=== PATIENT | male | born 1965 | race Caucasian/White ===

== ENCOUNTER 2021-03-28 10:12 | Outpatient (REF) | payer OTHER, SELFPAY ==
--- NOTE | ~2021-03-28 | XR_ITS ---
EXAMINATION: 1. RADIOGRAPHS LEFT RIBS 2. RADIOGRAPHS LEFT ELBOW CLINICAL INFORMATION: Pleurodynia. Left elbow pain. COMPARISON: Chest x-ray 08/20/2013 TECHNIQUE: 3 views of the left ribs and 4 views of the left elbow were obtained. FINDINGS: Left RIBS: Cardiac silhouette is normal in size. The lungs are well aerated. There is no lobar consolidation. No pleural effusion or pneumothorax. No left-sided rib fracture. Moderate degenerative changes of the left shoulder. Left elbow: No fracture or dislocation. No joint effusion. Minimal degenerative changes of the left elbow. No focal soft tissue swelling. No radiopaque foreign body. XR/XR elbow LT 2V IMPRESSION: -No left-sided rib fracture. -Minimal degenerative changes of the left elbow. -Moderate degenerative changes of the left shoulder, suboptimally visualized.
--- NOTE | ~2021-03-28 | XR_ITS ---
EXAMINATION: 1. RADIOGRAPHS LEFT RIBS 2. RADIOGRAPHS LEFT ELBOW CLINICAL INFORMATION: Pleurodynia. Left elbow pain. COMPARISON: Chest x-ray 08/20/2013 TECHNIQUE: 3 views of the left ribs and 4 views of the left elbow were obtained. FINDINGS: Left RIBS: Cardiac silhouette is normal in size. The lungs are well aerated. There is no lobar consolidation. No pleural effusion or pneumothorax. No left-sided rib fracture. Moderate degenerative changes of the left shoulder. Left elbow: No fracture or dislocation. No joint effusion. Minimal degenerative changes of the left elbow. No focal soft tissue swelling. No radiopaque foreign body. XR/XR ribs LT min 3V w CXR1V IMPRESSION: -No left-sided rib fracture. -Minimal degenerative changes of the left elbow. -Moderate degenerative changes of the left shoulder, suboptimally visualized.
== END 2021-03-28 10:13 | disposition home or self-care (01) ==
LOC: HO.XRAY 10:12
PROVIDERS: PCP Physician Assistant; Visit Provider Physician Assistant
DX: R07.81 Pleurodynia (principal); M25.522 Pain in left elbow
CPT/HCPCS: 71101; 73070

== ENCOUNTER 2021-10-16 08:36 | Outpatient (REF) | payer OTHER, SELFPAY ==
[2021-10-16 08:59] LABS: Hematocrit 45.8 % (42.0-52.0); Hemoglobin 16.1 g/dl (14.0-18.0); Mean Corpuscular HGB Conc 35.2 g/dl (31.0-36.0); Mean Corpuscular Hemoglobin 30.6 pg (27.0-33.0); Mean Corpuscular Volume 87.1 fL (80.0-98.0); Mean Platelet Volume 8.4 fL (9.4-12.4); Platelet Count 316 X10*3/uL (160-400); Red Blood Count 5.26 X10*6/uL (4.60-5.80); Red Cell Distribution Width 11.8 % (11.0-16.0)
[2021-10-16 09:29] LABS: Alanine Aminotransferase 17 U/L (0-40); Albumin Level 4.5 g/dL (3.5-5.0); Alkaline Phosphatase 63 U/L (39-117); Anion Gap 16 (12-20); Aspartate Amino Transferase 21 U/L (5-37); Bilirubin Total 0.8 mg/dL (0.0-1.0); Blood Urea Nitrogen 15 mg/dL (9-16); Calcium 9.8 mg/dL (8.4-10.2); Carbon Dioxide 28 mmol/L (22-29); Chloride 99 mmol/L (96-108); Cholesterol 193 mg/dL; Estimated Glomerular Filt Rate > 60; Glucose Fasting 117 mg/dL (60-99); HDL Cholesterol 49 mg/dL; LDL Cholesterol Calculated 128 mg/dl; Potassium 3.7 mmol/L (3.3-5.1); Sodium 139 mmol/L (135-145); Total Protein 7.6 g/dL (6.5-8.0); Triglycerides 82 mg/dL
[2021-10-16 09:52] LABS: Prostate Specific Antigen Scr 0.67 ng/mL (<0.05-4.0); TSH reflex Free T4 1.67 uIU/mL (0.32-4.0)
[2021-10-16 11:19] LABS: Creatinine Urine 192.33 mg/dL; Microalbum/Creatinine Ratio Ur 11.4 ug/mg cr
== END 2021-10-16 08:37 | disposition home or self-care (01) ==
LOC: HO.LAB 08:36
PROVIDERS: PCP Physician Assistant; Visit Provider Physician Assistant
DX: Z12.5 Encounter for screening for malignant neoplasm of prostate (principal); I10 Essential (primary) hypertension; E78.2 Mixed hyperlipidemia
CPT/HCPCS: 36415; 80053; 80061; 82043; 84153; 84443; 85027

== ENCOUNTER 2022-03-20 06:52 | Outpatient (REF) | payer OTHER, SELFPAY ==
[2022-03-20 07:38] LABS: Hematocrit 45.5 % (42.0-52.0); Hemoglobin 15.9 g/dl (14.0-18.0); Mean Corpuscular HGB Conc 34.9 g/dl (31.0-36.0); Mean Corpuscular Hemoglobin 30.2 pg (27.0-33.0); Mean Corpuscular Volume 86.5 fL (80.0-98.0); Mean Platelet Volume 8.5 fL (9.4-12.4); Platelet Count 329 X10*3/uL (160-400); Red Blood Count 5.26 X10*6/uL (4.60-5.80); Red Cell Distribution Width 11.7 % (11.0-16.0); White Blood Count 7.6 X10*3/uL (4.8-10.8)
[2022-03-20 07:46] LABS: Estimated Average Glucose 131 mg/dL; Hemoglobin A1c % 6.2 %
[2022-03-20 07:53] LABS: Creatinine Urine 221.39 mg/dL; Microalbum/Creatinine Ratio Ur 7.6 ug/mg cr
[2022-03-20 08:09] LABS: Alanine Aminotransferase 30 U/L (0-40); Albumin Level 4.3 g/dL (3.5-5.0); Alkaline Phosphatase 65 U/L (39-117); Anion Gap 13 (12-20); Aspartate Amino Transferase 19 U/L (5-37); Bilirubin Total 0.6 mg/dL (0.0-1.0); Blood Urea Nitrogen 12 mg/dL (9-16); Calcium 9.9 mg/dL (8.4-10.2); Carbon Dioxide 29 mmol/L (22-29); Chloride 102 mmol/L (96-108); Cholesterol 186 mg/dL; Estimated Glomerular Filt Rate > 60; Glucose Fasting 106 mg/dL (60-99); HDL Cholesterol 51 mg/dL; LDL Cholesterol Calculated 109 mg/dl; Potassium 3.9 mmol/L (3.3-5.1); Sodium 140 mmol/L (135-145); Total Protein 7.4 g/dL (6.5-8.0); Triglycerides 134 mg/dL
[2022-03-20 08:24] LABS: Prostate Specific Antigen Scr 0.78 ng/mL (<0.05-4.0); TSH reflex Free T4 2.55 uIU/mL (0.32-4.0)
== END 2022-03-20 06:53 | disposition home or self-care (01) ==
LOC: HO.LAB 06:52
PROVIDERS: PCP Physician Assistant; Visit Provider Physician Assistant
DX: Z12.5 Encounter for screening for malignant neoplasm of prostate (principal); R73.01 Impaired fasting glucose; I10 Essential (primary) hypertension; E78.2 Mixed hyperlipidemia
CPT/HCPCS: 36415; 80053; 80061; 82043; 83036; 84153; 84443; 85027

== ENCOUNTER 2022-10-29 07:47 | Outpatient (AMB) | payer OTHER, SELFPAY ==
[2022-10-29 07:48] VITALS: BP 122/78; PULSE 77; O2SAT 98; BMI 27.7
--- NOTE | 2022-10-29 07:48 | A.OFFPC_ITS ---
Vital Signs 10/29/22 07:48 Height 5 ft 7 in Weight 177 lb BMI 27.7 BP 122/78 Blood Pressure Location Lt brachial Position Sitting Pulse 77 Pulse Source Pulse Oximeter Pulse Oximetry (%) 98 Oxygen Delivery Method Room Air Intake Visit Reasons: Annual Exam Allergies lisinopril Adverse Reaction (Intermediate, Verified 10/29/22 07:59) Cough Medication List - Last Reconciled 10/29/22 by Evaristo Solano PA-C amlodipine 10 mg PO DAILY atorvastatin 40 mg PO DAILY 90 days fluorouracil 5% 1 appl topical BID 4 weeks gemfibrozil 600 mg PO BID hydrochlorothiazide 12.5 mg PO DAILY 90 days sildenafil 100 mg PO DAILY 14 days Tobacco use date assessed: 03/21/22 Dental Screening Dental Screen Date: 10/29/22 Did you have a dental visit in the last 12 months?: Yes Did you have a dental problem in the last 6 months where you did not have access to dental care?: No Was dental information given to patient?: Patient has dentist HPI Annual Exam HPI Details Sergey is a 57-year-old male here today for a annual physical. . Patient has a? past medical history of hypertension, hyperlipidemia,? overweight. . Concern--: fungal infection on toes has return , was on p.o. antifungal in the past with good effect on treating the fungal nails.?. ?HTN: Does not regularly check his blood? pressure at home though he reports blood pressure has been well controlled for? years now on his current med regime. Denies any headaches, chest pain, shortness? of breath. Today blood pressure acceptable. .. HLD: Cholesterol panel acceptable, continue current dose of statin therapy .. Impaired fasting blood sugar: ? Most recent fasting blood sugar 106, A1c is 6.2 , patient reports he is?? active?? and eats pret well.? Unclear if this is side effect statin therapy versus hydrochlorothiazide.? . ?. ? Colonoscopy? 2014 Dr. Mednoza -repeat 10 years. .. VAccine: UTD with Tdap, UTD with COVID vac, considering shingles vaccine Laboratory Tests 10/25/21 03/20/22 03/20/22 08:24 06:55 06:55 RBC 5.26 Fasting Glucose 106 H Hgb A1c (Clinic) 6.0 Hemoglobin A1c % Cholesterol 186 PSA Screen 0.78 Urine Microalbumin 03/20/22 03/20/22 06:55 06:55 RBC Fasting Glucose Hgb A1c (Clinic) Hemoglobin A1c % 6.2 Cholesterol PSA Screen Urine Microalbumin 17.0 [facility], [facility] Surgical History History of colonoscopy History of hernia surgery Family History Father AAA (abdominal aortic aneurysm) Social History Housing: House Alcohol intake: current Alcohol intake frequency: a few times a week Alcohol type: beer Patient Tobacco Use Status: Never used Tobacco e-Cigarette/Vaping Use: Never Used Second Hand Smoke Exposure: No service: No Current occupational status: employed Current occupation: [employer] Cognitive needs: No Hearing needs: No Vision needs: No Questionnaire PHQ-9 Over the last 2 weeks, how often have you been bothered by any of the following problems? 1. Little interest or pleasure in doing things: not at all 2. Feeling down, depressed, or hopeless: not at all 3. Trouble falling or staying asleep, or sleeping too much: not at all 4. Feeling tired or having little energy: not at all 5. Poor appetite or overeating: not at all 6. Feeling bad about yourself - or that you are a failure or have let yourself or your family down: not at all 7. Trouble concentrating on things, such as reading the newspaper or watching television: not at all 8. Moving or speaking so slowly that other people could have noticed. Or the opposite - being so fidgety or restless that you have been moving around a lot more than usual: not at all 9. Thoughts that you would be better off or of hurting yourself in some way: not at all Total score: 0 Depression Screening Interpretation: Negative 50675 - PHQ-9 Billing: Yes Source: Developed by Drs. Tristin Garcia, Erika Brownlee, Kaushal Lozano and colleagues, with an educational ninfa from [id number]. Thrive Questionnaire Date Thrive assessed: 03/21/22 AUDIT C Alcohol Use Questionnaire (AUDIT-C) 1. How often do you have a drink containing alcohol?: 2-3 times a week 2. How many drinks containing alcohol do you have on a typical day when you are drinking?: 1 or 2 3. How often do you have six or more drinks on one occasion?: Never Total Score: 3 LISA-7 AMB Questionnaire LISA-7 Date LISA - 7 assessed: 10/29/22 Feeling nervous, anxious, or on edge: 0 = Not at all Not being able to stop or control worryin = Not at all Worrying too much about different things: 0 = Not at all Trouble relaxin = Not at all Being so restless that it is hard to sit still: 0 = Not at all Becoming easily annoyed or irritable: 0 = Not at all Feeling afraid as if something awful might happen: 0 = Not at all Total LISA-7 score (0-4 normal; 5-9 mild; 10-14 moderate; 15-21 severe): 0 Source: Developed by Drs. Tristin Garcia, Erika Brownlee, Kaushal Lozano and colleagues, with an educational ninfa from [id number]. LISA-7 Assessment Billing LISA-7 Assessment Tool: LISA-7 Assessment 46114 Review of Systems Const Denies body aches, Denies chills, Denies excessive sweating, Denies fatigue, Denies fever(s) and Denies headache(s) Eyes Denies blurry vision ENT Denies dysphagia, Denies vertigo, Denies dizziness, Denies headache(s), Denies hearing loss and Denies tinnitus Card Denies chest pain, Denies chest pain with activity, Denies syncope, Denies irregular heart rhythm and Denies dyspnea Resp Denies chest congestion, Denies cough, Denies hemoptysis, Denies dyspnea and Denies wheezing GI Denies abdominal pain, Denies melena, Denies hematochezia, Denies coffee ground emesis, Denies dysphagia, Denies diarrhea, Denies nausea and Denies vomiting Denies difficulty urinating, Denies dysuria, Denies urinary frequency, Denies urinary hesitancy and Denies urinary urgency Musc Denies arthralgias, Denies limited range of motion, Denies muscle cramps and Denies muscle weakness Skin/Breast Denies rash and Denies skin ulcer Neuro Denies Abnormal speech present, Denies confusion, Denies vertigo, Denies dizziness, Denies syncope, Denies headache(s), Denies memory loss and Denies seizure-like activity Psych Denies anxiety, Denies confusion, Denies depression, Denies memory loss, Denies panic attacks and Denies paranoia Endo Denies excessive sweating, Denies fatigue, Denies flushing, Denies polydipsia and Denies polyuria Aller/Immun Denies wheezing Physical exam (Primary Care) Vital Signs: Last Vital Signs Pulse 77 10/29/22 07:48 BP 122/78 10/29/22 07:48 Pulse Ox 98 10/29/22 07:48 Oxygen Delivery Method Room Air 10/29/22 07:48 BMI result Body Mass Index 27.7 Tobacco/Smoking Status: Tobacco use Status Tobacco use date assessed 03/21/22 10/29/22 07:48 Patient Tobacco Use Status Never used Tobacco 10/29/22 07:48 e-Cigarette/Vaping Use Never Used 10/29/22 07:48 PHQ-9: PHQ-9 Score PHQ-9: Total score 0 10/29/22 08:03 Depression Screening Interpretation: Negative Thrive Assessment: Date of Thrive Assessment Date Thrive assessed 03/21/22 10/29/22 07:48 Const General: cooperative, comfortable, no acute distress, alert and awake; No confusion Orientation/consciousness: oriented to person, oriented to place, patient oriented x3 and No confusion HENMT Head: Yes normocephalic Ears: external ears normal and TM's normal bilaterally Face and sinus: No sinus tenderness Mouth: Normal oral and palatal mucosa present and tongue normal Teeth and gingiva: dentition normal and gingiva normal Throat: Yes posterior oropharynx normal, Yes tonsils normal and Yes uvula midline Eyes Conjunctivae: conjunctivae normal Sclerae: sclerae normal Pupils: Equal, round and reactive pupils present EOM: EOMs intact bilaterally Direct Ophthalmoscopy: No no photophobia Neck Neck: Yes no lymphadenopathy, No tender and Yes no JVD Thyroid: Thyroid normal Carotids: no bruits Chest Chest palpation & inspection: no tenderness Resp Effort & Inspection: normal respiratory effort, no audible wheezes, not labored and no stridor Auscultation: no crackles, no rales, no rhonchi and no wheezes Cardio Jugular venous distension: no JVD Rate: regular rate, not bradycardic and not tachycardic Rhythm: regular rhythm Bruits: no carotid bruits Peripheral pulses: Peripheral pulses 2+ throughout GI Inspection: Yes normal to inspection, No abdominal wall ecchymosis and No visible herniation Palpation (GI): Soft to palpation, nontender, no guarding, not rigid and No hepatosplenomegaly present Auscultation: normoactive bowel sounds General: Yes no CVA tenderness Back/Spine/Pelvis Back: no CVA tenderness and No back tenderness Cervical Spine: cervical ROM normal Thoracic/Lumbar Spine: thoracic and lumbar spine normal to inspection, straight leg raise negative bilaterally, No thoraco-lumbar ROM limited and No lumbar spinal tenderness Skin Lesions: no lesions Rashes: no rashes Wounds: no wounds Neuro General: oriented to person, oriented to place, patient oriented x3, CN's II-XI intact bilaterally and No confusion Cranial nerves: Yes Equal, round and reactive pupils present and Yes Normal accommodation reflex present Cognition (Neuro): normal cognition Speech: No Abnormal speech present Gait exam (Neuro): Normal gait present Motor exam (neuro): 5/5 motor strength present throughout Extrem Right upper extremity: full ROM; no cyanosis Left upper extremity: full ROM; no cyanosis Right lower extremity: no edema Left lower extremity: no edema Psych Appearance: grossly normal Mental Status: mental status grossly normal Affect: normal affect Attitude: cooperative Thought process: Normal thought process present Assessment and Plan Assessment & Plan (1) Annual physical exam: Code(s): Z00.00 - Encounter for general adult medical examination without abnormal findings (2) OM (onychomycosis): Code(s): B35.1 - Tinea unguium Plan: Has developed toenail onychomycosis and would like p.o. anti fungal therapy again. Has used p.o. antifungal therapy in the past with good results. (3) HLD (hyperlipidemia): Code(s): E78.5 - Hyperlipidemia, unspecified Qualifiers: Hyperlipidemia type: mixed hyperlipidemia Qualified Code(s): E78.2 - Mixed hyperlipidemia Plan: Patient's most recent fasting lipid panel showing appropriate LDL and total cholesterol. Will continue current dose of statin therapy. (4) HTN (hypertension): Code(s): I10 - Essential (primary) hypertension Qualifiers: Hypertension type: primary hypertension Qualified Code(s): I10 - Essential (primary) hypertension Plan: Patient's blood pressure acceptable today in office. Will continue current dose of hydrochlorothiazide amlodipine with goal blood pressure be below 140/90 (5) Elevated fasting blood sugar: Code(s): R73.01 - Impaired fasting glucose Plan: Patient's most recent fasting blood sugar improved to 106 though still slightly elevated. Most recent A1c is 6.2 He will continue working on lifestyle modifications to reduce his carbohydrates and sugar in his diet. Orders: Orders Comprehensive [place]. Panel Fast Today I10 - Essential (primary) hypertension Hemoglobin A1c Today R73.01 - Impaired fasting glucose Lipid Panel Today E78.2 - Mixed hyperlipidemia Prostate Specific Antigen Scr Today R73.01 - Impaired fasting glucose, Z12.5 - Encounter for screening for malignant neoplasm of prostate Microalbumin, Random (w Creat) Today I10 - Essential (primary) hypertension Complete Blood Count no Diff Today I10 - Essential (primary) hypertension Medications: New terbinafine HCl 250 mg PO DAILY 12 weeks 84 tabs 0RF B35.1 - Tinea unguium Coding Level of Care Code Est Pt Prev Care 40-64y(70398) Diagnoses Annual physical exam Z00.00 OM (onychomycosis) B35.1 HLD (hyperlipidemia) E78.2 Hyperlipidemia type: mixed hyperlipidemia HTN (hypertension) I10 Hypertension type: primary hypertension Elevated fasting blood sugar R73.01 Additional Codes LISA-7 Assessment Billing - LISA-7 Assessment Tool: LISA-7 Assessment 32760 ([id number])
== END 2022-10-29 08:16 | disposition home or self-care (01) ==
PROVIDERS: PCP Physician Assistant; Visit Provider Physician Assistant
DX: Z00.00 Encounter for general adult medical examination without abnormal findings (principal); B35.1 Tinea unguium; E78.2 Mixed hyperlipidemia; I10 Essential (primary) hypertension; R73.01 Impaired fasting glucose
CPT/HCPCS: 99396

== ENCOUNTER 2023-04-01 07:10 | Outpatient (REF) | payer OTHER, SELFPAY ==
[2023-04-01 08:07] LABS: Estimated Average Glucose 131 mg/dL; Hemoglobin A1c % 6.2 % (<6.0)
[2023-04-01 08:14] LABS: Hematocrit 47.1 % (42.0-52.0); Hemoglobin 16.1 g/dl (14.0-18.0); Mean Corpuscular HGB Conc 34.2 g/dl (31.0-36.0); Mean Corpuscular Volume 87.9 fL (80.0-98.0); Mean Platelet Volume 8.4 fL (9.4-12.4); Platelet Count 363 X10*3/uL (160-400); Red Blood Count 5.36 X10*6/uL (4.60-5.80); Red Cell Distribution Width 12.2 % (11.0-16.0); White Blood Count 8.1 X10*3/uL (4.8-10.8)
[2023-04-01 08:23] LABS: Creatinine Urine 224.24 mg/dL
[2023-04-01 08:29] LABS: Alanine Aminotransferase 16 U/L (0-40); Albumin Level 4.3 g/dL (3.5-5.0); Alkaline Phosphatase 66 U/L (39-117); Anion Gap 13 (12-20); Aspartate Amino Transferase 15 U/L (5-37); Bilirubin Total 0.6 mg/dL (0.0-1.0); Blood Urea Nitrogen 14 mg/dL (9-16); Calcium 9.9 mg/dL (8.4-10.2); Carbon Dioxide 28 mmol/L (22-29); Chloride 102 mmol/L (96-108); Cholesterol 220 mg/dL (<200); Estimated Glomerular Filt Rate > 60; Glucose Fasting 119 mg/dL (60-99); HDL Cholesterol 46 mg/dL (>40); LDL Cholesterol Calculated 142 mg/dL (<100); Potassium 3.3 mmol/L (3.3-5.1); Sodium 140 mmol/L (135-145); Total Protein 7.7 g/dL (6.5-8.0); Triglycerides 162 mg/dL (<150)
[2023-04-01 08:43] LABS: TSH reflex Free T4 2.13 uIU/mL (0.32-4.0)
== END 2023-04-01 07:11 | disposition home or self-care (01) ==
LOC: HO.LAB 07:10
PROVIDERS: PCP Physician Assistant; Visit Provider Physician Assistant
DX: Z12.5 Encounter for screening for malignant neoplasm of prostate (principal); I10 Essential (primary) hypertension; R73.01 Impaired fasting glucose; E78.2 Mixed hyperlipidemia
CPT/HCPCS: 36415; 80053; 80061; 82043; 82570; 83036; 84153; 84443; 85027

== ENCOUNTER 2023-12-24 10:02 | Outpatient (AMB) | payer OTHER, SELFPAY ==
--- NOTE | 2023-12-24 10:05 | A.OFFPC_ITS ---
Vital Signs 12/24/23 10:06 Height 5 ft 7 in Weight 173 lb 2 oz BMI 27.1 BP 148/100 H Blood Pressure Location Lt brachial Position Sitting Pulse 70 Pulse Source Pulse Oximeter Pulse Oximetry (%) 98 Oxygen Delivery Method Room Air Intake Visit Reasons: PE Intake Note: Patient is here today for a physical. Pt decline flu shot. 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 Accompanied by: Self / Same As Patient Allergies lisinopril Adverse Reaction (Intermediate, Verified 12/24/23 10:16) Cough Medication List - Last Reconciled 12/24/23 by Evaristo Solano PA-C amlodipine 10 mg PO DAILY atorvastatin 40 mg PO DAILY 90 days fluorouracil 5% 1 appl topical BID 4 weeks hydrochlorothiazide 12.5 mg PO DAILY 90 days terbinafine HCl 250 mg PO DAILY 6 weeks Tobacco use date assessed: 12/24/23 Dental Screening Dental Screen Date: 12/24/23 Did you have a dental visit in the last 12 months?: Yes Did you have a dental problem in the last 6 months where you did not have access to dental care?: No Was dental information given to patient?: Patient has dentist HPI PE HPI Details Sergey is a 58-year-old male here today for a annual physical. . Patient has a? past medical history of hypertension, hyperlipidemia,? overweight. . Concern--> ?. ?HTN: Does not regularly check his blood? pressure at home though he reports blood pressure has been well controlled for? years. Today in office blood pressure elevated. He reports he has stopped drinking coffee. Otherwise Denies any headaches, chest pain, shortness? of breath.. .. HLD: Most recent lipid panel showing elevated total cholesterol and LDL, continue current dose of statin therapy .. Impaired fasting blood sugar: Today's A1c is 6.3 from 6.2. , does understand his fasting blood sugars and A1cs are in prediabetic range. He is not interested in starting medication will like to work on dietary modifications. ?. ? Colonoscopy? 2014 Dr. Mendoza -repeat 10 years. .. VAccine: UTD with Tdap, UTD with COVID vac, considering shingles vaccine, Declines flu vaccine Laboratory Tests 03/20/22 04/01/23 06:55 07:23 RBC 5.36 Fasting Glucose 106 H 119 H Hemoglobin A1c % 6.2 6.2 H Cholesterol 186 220 H LDL Cholesterol, C alc 109 142 H TSH 2.13 PFSH Medical History Erectile dysfunction Surgical History History of hernia surgery History of colonoscopy Family History Father AAA (abdominal aortic aneurysm) Social History (Updated 12/24/23 @ 10:19 by Evaristo Solano PA-C) Housing: House Alcohol intake: current Alcohol intake frequency: a few times a week Alcohol type: beer Patient Tobacco Use Status: Never used Tobacco e-Cigarette/Vaping Use: Never Used Second Hand Smoke Exposure: No service: No Current occupational status: employed Current occupation: [employer] Cognitive needs: No Hearing needs: No Vision needs: No Questionnaire PHQ-9 Over the last 2 weeks, how often have you been bothered by any of the following problems? 1. Little interest or pleasure in doing things: not at all 2. Feeling down, depressed, or hopeless: not at all 3. Trouble falling or staying asleep, or sleeping too much: not at all 4. Feeling tired or having little energy: not at all 5. Poor appetite or overeating: not at all 6. Feeling bad about yourself - or that you are a failure or have let yourself or your family down: not at all 7. Trouble concentrating on things, such as reading the newspaper or watching television: not at all 8. Moving or speaking so slowly that other people could have noticed. Or the opposite - being so fidgety or restless that you have been moving around a lot more than usual: not at all 9. Thoughts that you would be better off or of hurting yourself in some way: not at all Total score: 0 Depression Screening Interpretation: Negative Depression Screening Done: Yes 42001 - PHQ-9 Billing: Yes Source: Developed by Drs. Tristin Garcia, Erika Brownlee, Kaushal Lozano and colleagues, with an educational ninfa from [employer]. Thrive Questionnaire Date Thrive assessed: 12/24/23 I am a: Patient What is your living situation today?: I have a steady place to live Within the past 12 months, did the food you bought not last and you didn't have the money to get more?: Never true Within the past 12 months, did you worry whether your food would run out before you got money to buy more?: Never true Do you have trouble paying for medicines?: No Do you have trouble getting transportation to medical appointments?: No Do you have trouble paying your heating and electricity bill?: No Do you have trouble taking care of your child, family member or friend?: No Do you have trouble with day-to-day activities such as bathing, preparing meals, shopping, managing finances, etc.?: No Are you currently unemployed and looking for a job?: No Are you interested in more education?: No Please select the resources that you would like help with: None Currently or been in a relationship where the following occur: No concerns reported THRIVE Score: 0 AUDIT C Alcohol Use Questionnaire (AUDIT-C) 1. How often do you have a drink containing alcohol?: 2-3 times a week 2. How many drinks containing alcohol do you have on a typical day when you are drinking?: 3 or 4 3. How often do you have six or more drinks on one occasion?: Less than monthly Total Score: 5 LISA-7 AMB Questionnaire LISA-7 Date LISA - 7 assessed: 12/24/23 Feeling nervous, anxious, or on edge: 0 = Not at all Not being able to stop or control worryin = Not at all Worrying too much about different things: 0 = Not at all Trouble relaxin = Not at all Being so restless that it is hard to sit still: 0 = Not at all Becoming easily annoyed or irritable: 0 = Not at all Feeling afraid as if something awful might happen: 0 = Not at all Total LISA-7 score (0-4 normal; 5-9 mild; 10-14 moderate; 15-21 severe): 0 Source: Developed by Drs. Tristin Garcia, Erika Brownlee, Kaushal Lozano and colleagues, with an educational ninfa from [employer]. LISA-7 Assessment Billing LISA-7 Assessment Tool: LISA-7 Assessment 59459 Review of Systems Const Denies body aches, Denies chills, Denies excessive sweating, Denies fatigue, Denies fever(s) and Denies headache(s) Eyes Denies blurry vision ENT Denies dysphagia, Denies vertigo, Denies dizziness, Denies headache(s), Denies hearing loss and Denies tinnitus Card Denies chest pain, Denies chest pain with activity, Denies syncope, Denies irregular heart rhythm and Denies dyspnea Resp Denies chest congestion, Denies cough, Denies hemoptysis, Denies dyspnea and Denies wheezing GI Denies abdominal pain, Denies melena, Denies hematochezia, Denies coffee ground emesis, Denies dysphagia, Denies diarrhea, Denies nausea and Denies vomiting Denies difficulty urinating, Denies dysuria, Denies urinary frequency, Denies urinary hesitancy and Denies urinary urgency Musc Denies arthralgias, Denies limited range of motion, Denies muscle cramps and Denies muscle weakness Skin/Breast Denies rash and Denies skin ulcer Neuro Denies Abnormal speech present, Denies confusion, Denies vertigo, Denies dizziness, Denies syncope, Denies headache(s), Denies memory loss and Denies seizure-like activity Psych Denies anxiety, Denies confusion, Denies depression, Denies memory loss, Denies panic attacks and Denies paranoia Endo Denies excessive sweating, Denies fatigue, Denies flushing, Denies polydipsia and Denies polyuria Aller/Immun Denies wheezing Physical exam (Primary Care) Vital Signs: Last Vital Signs Pulse 70 12/24/23 10:06 BP 148/100 H 12/24/23 10:06 Pulse Ox 98 12/24/23 10:06 Oxygen Delivery Method Room Air 12/24/23 10:06 BMI result Body Mass Index 27.1 Tobacco/Smoking Status: Tobacco use Status Tobacco use date assessed 12/24/23 12/24/23 10:06 Patient Tobacco Use Status Never used Tobacco 12/24/23 10:06 e-Cigarette/Vaping Use Never Used 12/24/23 10:06 PHQ-9: PHQ-9 Score PHQ-9: Total score 0 12/24/23 10:06 Depression Screening Interpretation: Negative Thrive Assessment: Date of Thrive Assessment Date Thrive assessed 12/24/23 12/24/23 10:06 Currently or been in a relationship where the following occur: No concerns reported Const General: cooperative, comfortable, no acute distress, alert and awake; No confusion Orientation/consciousness: oriented to person, oriented to place, patient oriented x3 and No confusion HENMT Head: Yes normocephalic Ears: external ears normal and TM's normal bilaterally Face and sinus: No sinus tenderness Mouth: Normal oral and palatal mucosa present and tongue normal Teeth and gingiva: dentition normal and gingiva normal Throat: Yes posterior oropharynx normal, Yes tonsils normal and Yes uvula midline Eyes Conjunctivae: conjunctivae normal Sclerae: sclerae normal Pupils: Equal, round and reactive pupils present EOM: EOMs intact bilaterally Direct Ophthalmoscopy: No no photophobia Neck Neck: Yes no lymphadenopathy, No tender and Yes no JVD Thyroid: Thyroid normal Carotids: no bruits Chest Chest palpation & inspection: no tenderness Resp Effort & Inspection: normal respiratory effort, no audible wheezes, not labored and no stridor Auscultation: no crackles, no rales, no rhonchi and no wheezes Cardio Jugular venous distension: no JVD Rate: regular rate, not bradycardic and not tachycardic Rhythm: regular rhythm Bruits: no carotid bruits Peripheral pulses: Peripheral pulses 2+ throughout GI Inspection: Yes normal to inspection, No abdominal wall ecchymosis and No visible herniation Palpation (GI): Soft to palpation, nontender, no guarding, not rigid and No hepatosplenomegaly present Auscultation: normoactive bowel sounds General: Yes no CVA tenderness Back/Spine/Pelvis Back: no CVA tenderness and No back tenderness Cervical Spine: cervical ROM normal Thoracic/Lumbar Spine: thoracic and lumbar spine normal to inspection, straight leg raise negative bilaterally, No thoraco-lumbar ROM limited and No lumbar spinal tenderness Skin Lesions: no lesions Rashes: no rashes Wounds: no wounds Neuro General: oriented to person, oriented to place, patient oriented x3, CN's II-XI intact bilaterally and No confusion Cranial nerves: Yes Equal, round and reactive pupils present and Yes Normal accommodation reflex present Cognition (Neuro): normal cognition Speech: No Abnormal speech present Gait exam (Neuro): Normal gait present Motor exam (neuro): 5/5 motor strength present throughout Extrem Right upper extremity: full ROM; no cyanosis Left upper extremity: full ROM; no cyanosis Right lower extremity: no edema Left lower extremity: no edema Psych Appearance: grossly normal Mental Status: mental status grossly normal Affect: normal affect Attitude: cooperative Thought process: Normal thought process present Results AMB Hemoglobin A1c AMB Hemoglobin A1c 6.3 % Last Edit by EVELINE Powers on 12/24/23 10:17 Coding Level of Care Code Est Pt Prev Care 40-64y(21260) Diagnoses Annual physical exam Z00.00 Primary hypertension I10 Hypertension type: primary hypertension Mixed hyperlipidemia E78.2 Hyperlipidemia type: mixed hyperlipidemia Impaired glucose metabolism R73.09 Additional Codes LISA-7 Assessment Billing - LISA-7 Assessment Tool: LISA-7 Assessment 29900 ([id number]) Assessment & Plan Assessment & Plan (1) Annual physical exam: Code(s): Z00.00 - Encounter for general adult medical examination without abnormal findin gs Category: Medical Plan: as per HPI (2) HTN (hypertension): Code(s): I10 - Essential (primary) hypertension Category: Medical Qualifiers: Hypertension type: primary hypertension Qualified Code(s): I10 - Essential (primary) hypertension Plan: Patient's blood pressure today in office elevated. Has not been monitoring blood pressure at home. He will start doing more regular blood pressure monitoring at home and will message on the portal about his blood pressure readings. Will consider increasing his dose of hydrochlorothiazide back to 25 mg. Goal blood pressure to be consistently below 140/90 (3) HLD (hyperlipidemia): Code(s): E78.5 - Hyperlipidemia, unspecified Category: Medical Qualifiers: Hyperlipidemia type: mixed hyperlipidemia Qualified Code(s): E78.2 - Mixed hyperlipidemia Plan: Patient's most recent lipid panel showing borderline high total cholesterol and LDL. He continues on atorvastatin 40 mg. Will recheck lipid panel to ensure stable total cholesterol and LDL. Goal LDL to be below 130 (4) Impaired glucose metabolism: Code(s): R73.09 - Other abnormal glucose Category: Medical Plan: Patient does understand his fasting blood sugar and A1c are indicating prediabetes. We did discuss perhaps starting metformin though patient would like to hold off for now. He will work on lifestyle and dietary modifications. Goal A1c to be below 5.7 Orders: Orders AMB Hemoglobin A1c Today R73.01 - Impaired fasting glucose Comprehensive [place]. Panel Fast Today I10 - Essential (primary) hypertension Complete Blood Count no Diff Today I10 - Essential (primary) hypertension Lipid Panel Today E78.2 - Mixed hyperlipidemia Hemoglobin A1c Today R73.01 - Impaired fasting glucose Patient Instructions: Goal: Blood pressure to be below 140/90 Barriers: Adherence to physical activity and healthy eating habits
[2023-12-24 10:06] VITALS: BP 148/100; PULSE 70; O2SAT 98; BMI 27.1
== END 2023-12-24 10:35 | disposition home or self-care (01) ==
PROVIDERS: PCP Physician Assistant; Visit Provider Physician Assistant
DX: Z00.00 Encounter for general adult medical examination without abnormal findings (principal); I10 Essential (primary) hypertension; E78.2 Mixed hyperlipidemia; R73.09 Other abnormal glucose; R73.01 Impaired fasting glucose

== ENCOUNTER → 2023-12-24 10:02 | Outpatient (BNVA) | payer OTHER, SELFPAY | PROVIDERS: PCP Physician Assistant; Visit Provider Physician Assistant | DX: Z00.00 Encounter for general adult medical examination without abnormal findings (principal); I10 Essential (primary) hypertension; E78.2 Mixed hyperlipidemia; R73.09 Other abnormal glucose; Z79.899 Other long term (current) drug therapy | CPT/HCPCS: 83036; 96127 ==

== ENCOUNTER 2023-12-30 07:16 | Outpatient (REF) | payer OTHER, SELFPAY ==
[2023-12-30 07:51] LABS: Hematocrit 47.6 % (42.0-52.0); Hemoglobin 16.6 g/dl (14.0-18.0); Mean Corpuscular HGB Conc 34.9 g/dl (31.0-36.0); Mean Corpuscular Hemoglobin 30.2 pg (27.0-33.0); Mean Corpuscular Volume 86.5 fL (80.0-98.0); Mean Platelet Volume 8.4 fL (9.4-12.4); Platelet Count 270 X10*3/uL (160-400); Red Cell Distribution Width 12.1 % (11.0-16.0); White Blood Count 6.9 X10*3/uL (4.8-10.8)
[2023-12-30 08:04] LABS: Estimated Average Glucose 128 mg/dL; Hemoglobin A1C 181.2131 umol/L; Hemoglobin A1c % 6.1 % (<6.0); Total Hemoglobin (HGBA1C) 4151.7343 umol/L
[2023-12-30 08:33] LABS: Alanine Aminotransferase 51 U/L (0-40); Albumin Level 4.2 g/dL (3.5-5.0); Alkaline Phosphatase 73 U/L (39-117); Anion Gap 11 (12-20); Aspartate Amino Transferase 24 U/L (5-37); Bilirubin Total 0.6 mg/dL (0.0-1.0); Blood Urea Nitrogen 14 mg/dL (9-16); Calcium 9.1 mg/dL (8.4-10.2); Carbon Dioxide 26 mmol/L (22-29); Chloride 107 mmol/L (96-108); Cholesterol 174 mg/dL (<200); Estimated Glomerular Filt Rate > 60; Glucose Fasting 114 mg/dL (60-99); HDL Cholesterol 48 mg/dL (>40); LDL Cholesterol Calculated 88 mg/dL (<100); Potassium 3.4 mmol/L (3.3-5.1); Sodium 141 mmol/L (135-145); Total Protein 7.4 g/dL (6.5-8.0); Triglycerides 192 mg/dL (<150)
== END 2023-12-30 07:17 | disposition home or self-care (01) ==
LOC: HO.LAB 07:16
PROVIDERS: PCP Physician Assistant; Visit Provider Physician Assistant
DX: I10 Essential (primary) hypertension (principal); E78.2 Mixed hyperlipidemia; R73.01 Impaired fasting glucose
CPT/HCPCS: 36415; 80053; 80061; 83036; 85027

== ENCOUNTER → 2024-01-16 11:01 | Outpatient (BNVA) | payer OTHER, SELFPAY | PROVIDERS: PCP Physician Assistant ==

== ENCOUNTER 2024-07-29 08:28 | Outpatient (AMB) | payer OTHER, SELFPAY ==
[2024-07-29 08:46] VITALS: BP 124/82; PULSE 68; O2SAT 97; BMI 28.7
--- NOTE | 2024-07-29 08:46 | A.OFFPC_ITS ---
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 Accompanied by: Self / Same As Patient Allergies lisinopril Adverse Reaction (Intermediate, Verified 07/29/24 09:00) Cough Medication List - Last Reconciled 07/29/24 by Evaristo Solano PA-C amlodipine 10 mg PO DAILY atorvastatin 40 mg PO DAILY 90 days fluorouracil 5% 1 appl topical BID 4 weeks hydrochlorothiazide 12.5 mg PO DAILY 90 days hydrochlorothiazide 25 mg PO DAILY losartan 25 mg PO DAILY 30 days terbinafine HCl 250 mg PO DAILY 6 weeks Tobacco use date assessed: 07/29/24 Dental Screening Dental Screen Date: 07/29/24 Did you have a dental visit in the last 12 months?: Yes Did you have a dental problem in the last 6 months where you did not have access to dental care?: No Was dental information given to patient?: Patient has dentist HPI f/u HTN HPI Details Sergey is a 59-year-old male here today for a follow-up visit . Patient has a? past medical history of hypertension, hyperlipidemia, impaired glucose metabolism,? overweight. . ?. ?HTN: Today's blood pressure in office acceptable. He does take a higher dose of hydrochlorothiazide 25 mg. Of note has gained 10 lb over the winter.. Otherwise Denies any headaches, chest pain, shortness? of breath.. .. HLD: Most recent lipid panel showing elevated total cholesterol and LDL, continue current dose of statin therapy .. Impaired fasting blood sugar: Most recent A1c is 6.3. , does understand his fasting blood sugars and A1cs are in prediabetic range. He is not interested in starting medication will like to work on dietary modifications. [facility] Medical History Erectile dysfunction Surgical History History of hernia surgery History of colonoscopy Family History Father AAA (abdominal aortic aneurysm) Social History Housing: House Alcohol intake: current Alcohol intake frequency: a few times a week Alcohol type: beer Patient Tobacco Use Status: Never used Tobacco e-Cigarette/Vaping Use: Never Used Second Hand Smoke Exposure: No service: No Current occupational status: employed Current occupation: [employer] Cognitive needs: No Hearing needs: No Vision needs: No Questionnaire PHQ-9 Over the last 2 weeks, how often have you been bothered by any of the following problems? 1. Little interest or pleasure in doing things: not at all 2. Feeling down, depressed, or hopeless: not at all 3. Trouble falling or staying asleep, or sleeping too much: not at all 4. Feeling tired or having little energy: not at all 5. Poor appetite or overeating: not at all 6. Feeling bad about yourself - or that you are a failure or have let yourself or your family down: not at all 7. Trouble concentrating on things, such as reading the newspaper or watching television: not at all 8. Moving or speaking so slowly that other people could have noticed. Or the opposite - being so fidgety or restless that you have been moving around a lot more than usual: not at all 9. Thoughts that you would be better off or of hurting yourself in some way: not at all Total score: 0 Depression Screening Interpretation: Negative Depression Screening Done: Yes 61621 - PHQ-9 Billing: Yes Source: Developed by Drs. Tristin Garcia, Erika Brownlee, Kaushal Lozano and colleagues, with an educational ninfa from [employer]. Thrive Questionnaire Date Thrive assessed: 07/29/24 I am a: Patient What is your living situation today?: I have a steady place to live Within the past 12 months, did the food you bought not last and you didn't have the money to get more?: Never true Within the past 12 months, did you worry whether your food would run out before you got money to buy more?: Never true Do you have trouble paying for medicines?: No Do you have trouble getting transportation to medical appointments?: No Do you have trouble paying your heating and electricity bill?: No Do you have trouble taking care of your child, family member or friend?: No Do you have trouble with day-to-day activities such as bathing, preparing meals, shopping, managing finances, etc.?: No Are you currently unemployed and looking for a job?: No Are you interested in more education?: No Please select the resources that you would like help with: None Currently or been in a relationship where the following occur: No concerns reported THRIVE Score: 0 AUDIT C Alcohol Use Questionnaire (AUDIT-C) 1. How often do you have a drink containing alcohol?: 2-3 times a week 2. How many drinks containing alcohol do you have on a typical day when you are drinking?: 3 or 4 3. How often do you have six or more drinks on one occasion?: Less than monthly Total Score: 5 LISA-7 AMB Questionnaire LISA-7 Date LISA - 7 assessed: 07/29/24 Feeling nervous, anxious, or on edge: 0 = Not at all Not being able to stop or control worryin = Not at all Worrying too much about different things: 0 = Not at all Trouble relaxin = Not at all Being so restless that it is hard to sit still: 0 = Not at all Becoming easily annoyed or irritable: 0 = Not at all Feeling afraid as if something awful might happen: 0 = Not at all Total LISA-7 score (0-4 normal; 5-9 mild; 10-14 moderate; 15-21 severe): 0 Source: Developed by Drs. Tristin Garcia, Erika Brownlee, Kaushal Lozano and colleagues, with an educational ninfa from [employer]. LISA-7 Assessment Billing LISA-7 Assessment Tool: LISA-7 Assessment 53948 Review of Systems Const Denies headache(s) Eyes Denies loss of vision ENT Denies vertigo, Denies dizziness, Denies headache(s) and Denies sore throat Card Denies chest pain, Denies leg edema and Denies lightheadedness Resp Denies cough, Denies hemoptysis and Denies wheezing GI Denies abdominal pain, Denies melena, Denies constipation, Denies diarrhea and Denies vomiting Denies dysuria, Denies urinary frequency and Denies urinary urgency Musc Denies arthralgias, Denies joint swelling, Denies numbness and Denies tingling Neuro Denies Abnormal speech present, Denies behavioral changes, Denies vertigo, Denies dizziness, Denies headache(s), Denies loss of vision, Denies memory loss, Denies numbness and Denies tingling Psych Denies anxiety, Denies behavioral changes, Denies depression, Denies memory loss and Denies panic attacks Royer/Lymph Denies easy bleeding and Denies easy bruising Aller/Immun Denies wheezing Physical exam (Primary Care) Vital Signs: Last Vital Signs Pulse 68 07/29/24 08:46 BP 124/82 07/29/24 08:46 Pulse Ox 97 07/29/24 08:46 Oxygen Delivery Method Room Air 07/29/24 08:46 BMI result Body Mass Index 28.7 Tobacco/Smoking Status: Tobacco use Status Tobacco use date assessed 07/29/24 07/29/24 08:53 Patient Tobacco Use Status Never used Tobacco 07/29/24 08:53 e-Cigarette/Vaping Use Never Used 07/29/24 08:53 PHQ-9: PHQ-9 Score PHQ-9: Total score 0 07/29/24 08:53 Depression Screening Interpretation: Negative Thrive Assessment: Date of Thrive Assessment Date Thrive assessed 07/29/24 07/29/24 08:53 Currently or been in a relationship where the following occur: No concerns reported Const General: healthy appearing, no acute distress, alert and awake Nutritional Appearance: well nourished Orientation/consciousness: oriented to person, oriented to place and oriented to time HENMT Ears: TM's normal bilaterally General nose exam: Normal nasal mucous membranes and turbinates present Eyes Conjunctivae: conjunctivae normal Sclerae: sclerae normal Pupils: Equal, round and reactive pupils present Neck Neck: Yes no lymphadenopathy and Yes no JVD Thyroid: Thyroid normal Carotids: no bruits Resp Effort & Inspection: normal respiratory effort and not tachypneic Auscultation: no crackles, no rales, no rhonchi and no wheezes Cardio Rate: regular rate Rhythm: regular rhythm Heart sounds: no murmurs and normal S1 and S2 GI Palpation (GI): Soft to palpation, nontender, no hepatomegaly and no splenomegaly Auscultation: normal bowel sounds Skin General skin exam: no rashes or lesions noted and dry skin Neuro General: oriented to person, oriented to place and oriented to time Cranial nerves: Yes Equal, round and reactive pupils present Speech: No Abnormal speech present Gait exam (Neuro): Normal gait present Motor exam (neuro): no tremor noted Extrem Right upper extremity: full ROM Left upper extremity: full ROM Right lower extremity: full ROM; no edema Left lower extremity: full ROM; no edema Psych Mental Status: mental status grossly normal Speech and movement: Normal speech and movement present Affect: normal affect Attitude: cooperative Thought process: Normal thought process present Coding Level of Care Code Est Pt Level 4 (45955) Diagnoses Primary hypertension I10 Hypertension type: primary hypertension Mixed hyperlipidemia E78.2 Hyperlipidemia type: mixed hyperlipidemia Impaired glucose metabolism R73.09 Additional Codes LISA-7 Assessment Billing - LISA-7 Assessment Tool: LISA-7 Assessment 52737 ([id number]) PHQ-9 - 46607 - PHQ-9 Billing: Yes ([id number]) Assessment & Plan Assessment & Plan (1) HTN (hypertension): Code(s): I10 - Essential (primary) hypertension Category: Medical Qualifiers: Hypertension type: primary hypertension Qualified Code(s): I10 - Essential (primary) hypertension Plan: Patient's blood pressure acceptable today in office. We increased his hydrochlorothiazide 25 mg which seems to have regulate his blood pressure better. Has not been monitoring blood pressure at home. Goal blood pressure to be consistently below 140/90 (2) HLD (hyperlipidemia): Code(s): E78.5 - Hyperlipidemia, unspecified Category: Medical Qualifiers: Hyperlipidemia type: mixed hyperlipidemia Qualified Code(s): E78.2 - Mixed hyperlipidemia Plan: Patient's most recent lipid panel showing borderline high total cholesterol and LDL. He continues on atorvastatin 40 mg. Will recheck lipid panel to ensure stable total cholesterol and LDL. Goal LDL to be below 130 (3) Impaired glucose metabolism: Code(s): R73.09 - Other abnormal glucose Category: Medical Plan: Patient does understand his fasting blood sugar and A1c are indicating pre diabetes. We did discuss perhaps starting metformin though patient would like to hold off for now. He will work on lifestyle and dietary modifications. Goal A1c to be below 5.7 Orders: Orders Hemoglobin A1c Today R73.09 - Other abnormal glucose Lipid Panel Today E78.2 - Mixed hyperlipidemia Comprehensive [place]. Panel Fast Today E78.2 - Mixed hyperlipidemia Microalbumin, Random (w Creat) Today E78.2 - Mixed hyperlipidemia Complete Blood Count no Diff Today E78.2 - Mixed hyperlipidemia Prostate Specific Antigen Scr Today E78.2 - Mixed hyperlipidemia, Z12.5 - Encounter for screening for malignant neoplasm of prostate Patient Instructions: Goal: Blood pressure to remain below 140/90 Barriers: Adherence to physical activity and healthy eating habits
== END 2024-07-29 09:48 | disposition home or self-care (01) ==
LOC: HO.HMCH 08:29
PROVIDERS: PCP Physician Assistant; Visit Provider Physician Assistant
DX: I10 Essential (primary) hypertension (principal); E78.2 Mixed hyperlipidemia; R73.09 Other abnormal glucose

== ENCOUNTER → 2024-07-29 08:28 | Outpatient (BNVA) | payer OTHER, SELFPAY | PROVIDERS: PCP Physician Assistant; Visit Provider Physician Assistant | DX: I10 Essential (primary) hypertension (principal); E66.3 Overweight; E78.2 Mixed hyperlipidemia; R73.09 Other abnormal glucose | CPT/HCPCS: 96127 ==

== ENCOUNTER 2024-12-28 09:26 | Outpatient (AMB) | payer OTHER, SELFPAY ==
[2024-12-28 09:37] VITALS: BP 160/84; PULSE 72; TEMP 36.1; O2SAT 97; BMI 28.5
--- NOTE | 2024-12-28 09:37 | A.OFFPC_ITS ---
Vital Signs 12/28/24 09:37 12/28/24 10:01 Height 5 ft 7 in Weight 182 lb 2 oz BMI 28.5 BP 160/84 H 140/88 H Blood Pressure Location Lt brachial Position Sitting Pulse 72 Pulse Source Pulse Oximeter Temp 96.9 F Temp Source Temporal Artery Scan Pulse Oximetry (%) 97 Oxygen Delivery Method Room Air Intake Visit Reasons: Annual Exam - see comments Intake Note: Patient is here today for a physical. Program Management Intern Required: No Barrel Inspector Tight: Not Required per policy Accompanied by: Self / Same As Patient Allergies lisinopril Adverse Reaction (Intermediate, Verified 12/28/24 09:50) Cough Medication List - Last Reconciled 12/28/24 by Evaristo Solano PA-C amlodipine 10 mg PO DAILY atorvastatin 40 mg PO DAILY 90 days fluorouracil 5% 1 appl topical BID 4 weeks hydrochlorothiazide 25 mg PO DAILY losartan 25 mg PO DAILY 30 days Tobacco use date assessed: 12/28/24 Dental Screening Dental Screen Date: 07/29/24 HPI Annual Exam - see comments HPI Details Sergey is a 59-year-old male here today for a routine annual physical . Patient has a? past medical history of hypertension, hyperlipidemia, impaired glucose metabolism,? overweight. Patient interested in doing [facility] screening- will bring in paperwork for referral . ?. ?HTN: Today's blood pressure in office elevated. He reports drinking coffee this morning. He does take a higher dose of hydrochlorothiazide 25 mg. Otherwise Denies any headaches, chest pain, shortness? of breath. .. HLD: Most recent lipid panel showing elevated total cholesterol and LDL, continue current dose of statin therapy .. Impaired fasting blood sugar: Most recent A1c is 6.3. , does understand his fasting blood sugars and A1cs are in prediabetic range. He is not interested in starting medication will like to work on dietary modifications. Colonoscopy? 2014 Dr. Mendoza -repeat 10 years.-needs repeat .. VAccine: UTD with Tdap, UTD with COVID vac, considering shingles vaccine, Declines flu vaccine Laboratory Tests 04/01/23 12/24/23 12/30/23 07:23 10:04 07:28 Fasting Glucose 114 H Hgb A1c (Clinic) 6.3 H Hemoglobin A1c % 6.2 H 6.1 H Triglycerides 162 H 192 H Cholesterol 220 H 174 LDL Cholesterol, C alc 142 H 88 PFSH Medical History Erectile dysfunction Surgical History History of hernia surgery History of colonoscopy Family History Father AAA (abdominal aortic aneurysm) Social History (Updated 12/28/24 @ 09:57 by Evaristo Solano PA-C) Housing: House Alcohol intake: current Alcohol intake frequency: a few times a week Alcohol type: beer Patient Tobacco Use Status: Never used Tobacco e-Cigarette/Vaping Use: Never Used Second Hand Smoke Exposure: No service: No Current occupational status: employed Current occupation: [employer] Cognitive needs: No Hearing needs: No Vision needs: No Questionnaire Thrive Questionnaire Date Thrive assessed: 07/22/24 I am a: Patient What is your living situation today?: I have a steady place to live Within the past 12 months, did the food you bought not last and you didn't have the money to get more?: Never true Within the past 12 months, did you worry whether your food would run out before you got money to buy more?: Never true Do you have trouble paying for medicines?: No Do you have trouble getting transportation to medical appointments?: No Do you have trouble paying your heating and electricity bill?: No Do you have trouble taking care of your child, family member or friend?: No Do you have trouble with day-to-day activities such as bathing, preparing meals, shopping, managing finances, etc.?: No Are you currently unemployed and looking for a job?: No Are you interested in more education?: No Please select the resources that you would like help with: None Currently or been in a relationship where the following occur: No concerns reported THRIVE Score: 0 LISA-7 AMB Questionnaire LISA-7 Date LISA - 7 assessed: 07/29/24 Source: Developed by Drs. Tristin Garcia, Erika Brownlee, Kaushal Lozano and colleagues, with an educational ninfa from [employer]. Review of Systems Const Denies body aches, Denies chills, Denies excessive sweating, Denies fatigue, Denies fever(s) and Denies headache(s) Eyes Denies blurry vision ENT Denies dysphagia, Denies vertigo, Denies dizziness, Denies headache(s), Denies hearing loss and Denies tinnitus Card Denies chest pain, Denies chest pain with activity, Denies syncope, Denies irregular heart rhythm and Denies dyspnea Resp Denies chest congestion, Denies cough, Denies hemoptysis, Denies dyspnea and Denies wheezing GI Denies abdominal pain, Denies melena, Denies hematochezia, Denies coffee ground emesis, Denies dysphagia, Denies diarrhea, Denies nausea and Denies vomiting Denies difficulty urinating, Denies dysuria, Denies urinary frequency, Denies urinary hesitancy and Denies urinary urgency Musc Denies arthralgias, Denies limited range of motion, Denies muscle cramps and Denies muscle weakness Skin/Breast Denies rash and Denies skin ulcer Neuro Denies Abnormal speech present, Denies confusion, Denies vertigo, Denies dizziness, Denies syncope, Denies headache(s), Denies memory loss and Denies seizure-like activity Psych Denies anxiety, Denies confusion, Denies depression, Denies memory loss, Denies panic attacks and Denies paranoia Endo Denies excessive sweating, Denies fatigue, Denies flushing, Denies polydipsia and Denies polyuria Aller/Immun Denies wheezing Physical exam (Primary Care) Vital Signs: Last Vital Signs Temp 96.9 F 12/28/24 09:37 Pulse 72 12/28/24 09:37 BP 140/88 H 12/28/24 10:01 Pulse Ox 97 12/28/24 09:37 Oxygen Delivery Method Room Air 12/28/24 09:37 BMI result Body Mass Index 28.5 Tobacco/Smoking Status: Tobacco use Status Tobacco use date assessed 12/28/24 12/28/24 09:41 Patient Tobacco Use Status Never used Tobacco 12/28/24 09:57 e-Cigarette/Vaping Use Never Used 12/28/24 09:57 Thrive Assessment: Date of Thrive Assessment Date Thrive assessed 07/22/24 12/28/24 09:41 Currently or been in a relationship where the following occur: No concerns reported Const General: cooperative, comfortable, no acute distress, alert and awake; No confusion Orientation/consciousness: oriented to person, oriented to place, patient oriented x3 and No confusion HENMT Head: Yes normocephalic Ears: external ears normal and TM's normal bilaterally Face and sinus: No sinus tenderness Mouth: Normal oral and palatal mucosa present and tongue normal Teeth and gingiva: dentition normal and gingiva normal Throat: Yes posterior oropharynx normal, Yes tonsils normal and Yes uvula midline Eyes Conjunctivae: conjunctivae normal Sclerae: sclerae normal Pupils: Equal, round and reactive pupils present EOM: EOMs intact bilaterally Direct Ophthalmoscopy: No no photophobia Neck Neck: Yes no lymphadenopathy, No tender and Yes no JVD Thyroid: Thyroid normal Carotids: no bruits Chest Chest palpation & inspection: no tenderness Resp Effort & Inspection: normal respiratory effort, no audible wheezes, not labored and no stridor Auscultation: no crackles, no rales, no rhonchi and no wheezes Cardio Jugular venous distension: no JVD Rate: regular rate, not bradycardic and not tachycardic Rhythm: regular rhythm Bruits: no carotid bruits Peripheral pulses: Peripheral pulses 2+ throughout GI Inspection: Yes normal to inspection, No abdominal wall ecchymosis and No visible herniation Palpation (GI): Soft to palpation, nontender, no guarding, not rigid and No hepatosplenomegaly present Auscultation: normoactive bowel sounds General: Yes no CVA tenderness Back/Spine/Pelvis Back: no CVA tenderness and No back tenderness Cervical Spine: cervical ROM normal Thoracic/Lumbar Spine: thoracic and lumbar spine normal to inspection, straight leg raise negative bilaterally, No thoraco-lumbar ROM limited and No lumbar spinal tenderness Skin Lesions: no lesions Rashes: no rashes Wounds: no wounds Neuro General: oriented to person, oriented to place, patient oriented x3, CN's II-XI intact bilaterally and No confusion Cranial nerves: Yes Equal, round and reactive pupils present and Yes Normal accommodation reflex present Cognition (Neuro): normal cognition Speech: No Abnormal speech present Gait exam (Neuro): Normal gait present Motor exam (neuro): 5/5 motor strength present throughout Extrem Right upper extremity: full ROM; no cyanosis Left upper extremity: full ROM; no cyanosis Right lower extremity: no edema Left lower extremity: no edema Psych Appearance: grossly normal Mental Status: mental status grossly normal Affect: normal affect Attitude: cooperative Thought process: Normal thought process present Coding Level of Care Code Est Pt Prev Care 40-64y(75343) Diagnoses Annual physical exam Z00.00 Primary hypertension I10 Hypertension type: primary hypertension Mixed hyperlipidemia E78.2 Hyperlipidemia type: mixed hyperlipidemia Impaired glucose metabolism R73.09 Colon cancer screening Z12.11 Assessment & Plan Assessment & Plan (1) Annual physical exam: Code(s): Z00.00 - Encounter for general adult medical examination without abnormal findings Category: Medical Plan: As per HPI (2) HTN (hypertension): Code(s): I10 - Essential (primary) hypertension Category: Medical Qualifiers: Hypertension type: primary hypertension Qualified Code(s): I10 - Essential (primary) hypertension Plan: Patient's blood pressure slightly elevated today in office. He reports drinking coffee this morning. He has not been regularly checking his blood pressure and promises to start doing so. Will continue on hydrochlorothiazide and losartan 25 mg Goal blood pressure to be consistently below 140/90 (3) HLD (hyperlipidemia): Code(s): E78.5 - Hyperlipidemia, unspecified Category: Medical Qualifiers: Hyperlipidemia type: mixed hyperlipidemia Qualified Code(s): E78.2 - Mixed hyperlipidemia Plan: Patient's most recent lipid panel showing borderline high total cholesterol and LDL. He continues on atorvastatin 40 mg. Will recheck lipid panel to ensure stable total cholesterol and LDL. Goal LDL to be below 130 (4) Impaired glucose metabolism: Code(s): R73.09 - Other abnormal glucose Category: Medical Plan: Patient does understand his fasting blood sugar and A1c are indicating prediabetes. We did discuss perhaps starting metformin though patient would like to hold off for now. He will work on lifestyle and dietary modifications. Goal A1c to be below 5.7 (5) Colon cancer screening: Code(s): Z12.11 - Encounter for screening for malignant neoplasm of colon Category: Medical Plan: Patient in need for repeat screening colonoscopy. Orders: Referrals Gastroenterology Referral Z12.11 - Encounter for screening for malignant neoplasm of colon Medications: New sildenafil (Viagra) 100 mg PO DAILY PRN 5 tabs 0RF sexual activity 5 days Patient Instructions: Goal : Blood pressure to be below 140/90, LDL to be below 130 Barriers: Adherence to physical activity and healthy eating habits
[2024-12-28 10:01] VITALS: BP 140/88
--- OUTSIDE RECORDS SUMMARY | 2024-12-28 10:25 | XMS_ITS | Patient Health Record ---
Author Organization [facility] Address [address] [place] [address] Care Team Providers Care Supply Chain Vice President Name Role Phone Evaristo Solano Primary Care Provider Unavailab Amadeo Vega Jr Unavailable [phone] Reason For Referral No Information Medications Medication SIG (Take, Route, Frequency, Duration) Notes Start Date End Date Status amLODIPine Besylate 10 MG Oral; Duration: 30 Active hydroCHLOROthiazide 25 MG 1 tablet Orall y Once a day Active Gemfibrozil Active Atorvastatin Calcium 80 MG Oral; Duration: 30 Active Suprep Bowel Prep 1 as directed Orally 1 ; Duration: 1 dose 09/09/2014 Active Problems Problem Type SNOMED Code ICD Code Onset Dates Problem Status W/U Status Risk Notes Problem Long-term current use of drug therapy (744231990) Encounter for long-term (current) use of other medications (V58.69) Active confirmed Problem Colon cancer screening (007617300) Colon cancer screening (V76.51) Active confirmed Plan Of Treatment Future Test Test Name Order Date COLONOSCOPY 09/09/2014 Insurance Providers Payer Name Payer Address Payer Phone Subscriber Number Group Number Insured Name Patient Relationship to Insured Coverage Start Date Coverage End Date [facility] Navigator Plan(REFER RAL IS NEEDED) [address] [place] [address] [id number] TAMICA PONCE Self - patient is the insured Medical (General) History Medical History History ICD Code elevated cholesterol hypertension Surgical History Surgery Date(Month/Year) hernia repair, left inguinal and umbilic al
== END 2024-12-28 10:21 | disposition home or self-care (01) ==
LOC: HO.HMCH 09:27
PROVIDERS: PCP Physician Assistant; Visit Provider Physician Assistant
DX: Z00.00 Encounter for general adult medical examination without abnormal findings (principal); I10 Essential (primary) hypertension; E78.2 Mixed hyperlipidemia; R73.09 Other abnormal glucose; Z12.11 Encounter for screening for malignant neoplasm of colon

== ENCOUNTER 2025-01-03 07:48 | Outpatient (REF) | payer OTHER, SELFPAY ==
--- OUTSIDE RECORDS SUMMARY | 2025-01-03 07:51 | XMS_ITS | Patient Health Record ---
Author Organization [facility] Address [address] [place] [address] Care Team Providers Care Card Setter Name Role Phone Evaristo Solano Primary Care Provider Unavailab Amadeo Vega Jr Reason For Referral No Information Medications Medication [...] Problem Long-term current use of drug therapy (385092582) Encounter for long-term (current) use of other medications (V58.69) Active confirmed Problem Colon cancer screening (243083204) Colon cancer screening (V76.51) Active confirmed Plan Of Treatment Future Test Test Name Order Date COLONOSCOPY 09/09/2014 Next Appt Details Provider Name:Amadeo quijano Jr, 04/18/2025 01:15:00 PM, [address] [facility], [address], [place], [address], Insurance Providers Payer Name Payer Address Payer Phone Subscriber Number Group Number Insured Name Patient Relationship to Insured Coverage Start Date Coverage End Date [facility] [address] [place] [phone] [id number] TAMICA PONCE Self - patient is the insured Medical (General) History Medical History History ICD Code elevated cholesterol hypertension Surgical History Surgery Date(Month/Year) hernia repair, left inguinal and umbilic al
[2025-01-03 08:20] LABS: Hematocrit 46.7 % (42.0-52.0); Hemoglobin 16.1 g/dl (14.0-18.0); Mean Corpuscular HGB Conc 34.5 g/dl (31.0-36.0); Mean Corpuscular Hemoglobin 30.4 pg (27.0-33.0); Mean Corpuscular Volume 88.1 fL (80.0-98.0); NRBC Abs Auto 0.000 X10*3/uL (0.0-0.012); NRBC Pct Auto 0.0 /100WBC (0.0-0.2); Platelet Count 257 X10*3/uL (160-400); Red Blood Count 5.30 X10*6/uL (4.60-5.80); White Blood Count 8.2 X10*3/uL (4.8-10.8)
[2025-01-03 08:47] LABS: Alanine Aminotransferase 51 U/L (0-40); Albumin Level 4.2 g/dL (3.5-5.0); Alkaline Phosphatase 79 U/L (39-117); Anion Gap 16 (12-20); Aspartate Amino Transferase 27 U/L (5-37); Blood Urea Nitrogen 16 mg/dL (9-16); Calcium 9.4 mg/dL (8.4-10.2); Carbon Dioxide 26 mmol/L (22-29); Chloride 101 mmol/L (96-108); Cholesterol 174 mg/dL (<200); Estimated Glomerular Filt Rate > 60; HDL Cholesterol 44 mg/dL (>40); Potassium 3.7 mmol/L (3.3-5.1); Sodium 139 mmol/L (135-145); Total Protein 7.1 g/dL (6.5-8.0); Triglycerides 110 mg/dL (<150)
== END 2025-01-03 07:49 | disposition home or self-care (01) ==
LOC: HO.LAB 07:48
PROVIDERS: PCP Physician Assistant; Visit Provider Physician Assistant
DX: Z12.5 Encounter for screening for malignant neoplasm of prostate (principal); E78.2 Mixed hyperlipidemia; R73.09 Other abnormal glucose
CPT/HCPCS: 36415; 80053; 80061; 82043; 82570; 83036; 84153; 85027